=== PATIENT | male | born 2000 ===

== ENCOUNTER 2020-04-21 20:06 | Outpatient (REF) | payer MEDICAID, SELFPAY ==
[2020-04-23 17:58] LABS: SARS-CoV-2 RNA Undetected (Undetected); SARS-CoV-2 Specimen Source Nasal
== END 2020-04-21 20:26 ==
LOC: NCHCN 20:06
PROVIDERS: PCP Nurse Practitioner Family; Visit Provider Nurse Practitioner Family
DX: Z20.828 Contact with and (suspected) exposure to other viral communicable diseases (principal)
CPT/HCPCS: U0003